=== PATIENT | male | born 1985 | race Caucasian/White ===

== ENCOUNTER 2018-12-11 01:17 | Emergency (ER) | payer SELFPAY ==
[~2018-12-11] VITALS: Ht 165.1 cm; Wt 77.6 kg
[2018-12-11 04:16] VITALS: BP 127/62
== END 2018-12-11 04:16 | disposition home or self-care (01) ==
LOC: ED 01:17
DX: S39.011A Strain of muscle, fascia and tendon of abdomen, initial encounter (principal); S20.212A Contusion of left front wall of thorax, initial encounter; X58.XXXA Exposure to other specified factors, initial encounter; Y93.89 Activity, other specified; Y92.89 Other specified places as the place of occurrence of the external cause; Y99.8 Other external cause status